=== PATIENT | female | born 1960 | race Caucasian/White ===

== ENCOUNTER 2020-03-09 09:28 | Outpatient (CLI) | payer OTHER, SELFPAY ==
--- NOTE | 2020-03-09 10:42 | ECG_ITS ---
Measurements Intervals [place] Rate: 48 P: 14 ME: 121 QRS: -12 QRSD: 97 T: 0 QT: 411 QTc: 371 Interpretive Statements SINUS BRADYCARDIA DELAYED PRECORDIAL R/S TRANSITION BORDERLINE T WAVE ABNORMALITY- INFERIOR LEADS ABNORMAL ECG Electronically Signed On 03-09-2020 11:00:30 CDT by Gunnar Willis D.O.
[2020-03-09 11:15] LABS: Basophils Percent Auto 0.4 % (0.2-1.2); Eosinophils Absolute Auto 0.1 K/mm3 (0-0.3); Eosinophils Percent Auto 1.8 % (0-4.4); Hematocrit 43.8 % (37.0-47.0); Hemoglobin 14.2 g/dL (12.0-15.0); Immature Granulocyte Absolute 0.01 K/mm3 (0.00-0.031); Immature Granulocyte Percent A 0.2 % (0-0.5); Lymphocytes Absolute Auto 1.58 K/mm3 (0.9-3.2); Lymphocytes Percent Auto 32.4 % (18.3-44.2); Mean Corpuscular HGB Conc 32.4 g/dl (32-36); Mean Corpuscular Volume 86.4 fl (80-100); Mean Platelet Volume 10.9 fl (7.4-10.4); Monocytes Absolute Auto 0.5 K/mm3 (0.1-0.6); Monocytes Percent Auto 9.6 % (2.6-8.5); Neutrophils Absolute Auto 2.7 K/mm3 (1.3-6.7); Neutrophils Percent Auto 55.6 % (45.5-73.1); Platelet Count Result 201 k/mm3 (150-375); Red Blood Count 5.07 M/mm3 (4.2-5.4); White Blood Count 4.9 K/mm3 (4.5-10.0)
[2020-03-09 11:22] LABS: Prothrombin Time 12.5 Seconds (11.1-14.7)
[2020-03-09 11:23] LABS: Partial Thromboplastin Time 27.9 SECONDS (22.3-36.8)
[2020-03-09 11:27] LABS: Alanine Aminotransferase 37 U/L (4-35); Albumin Level 4.5 g/dL (3.5-5.1); Alkaline Phosphatase 90 U/L (38-126); Anion Gap 10.2 mmol/L (7-16); Aspartate Amino Transferase 33 U/L (14-36); Bilirubin,Total 0.5 mg/dL (0.2-1.3); Blood Urea Nitrogen 14 mg/dL (7-17); Calcium 9.4 mg/dL (8.4-10.2); Carbon Dioxide 29 mmol/L (22-30); Chloride 105 mmol/L (98-107); Estimated Glomerular Filt Rate > 60; Glucose 86 mg/dL (65-105); Potassium 4.2 mmol/L (3.4-5.0); Sodium 140 mmol/L (137-145)
== END 2020-03-09 09:29 | disposition home or self-care (01) ==
LOC: ANHSURGERY 09:32
PROVIDERS: PCP Internal Medicine; Visit Provider Urology
DX: N81.9 Female genital prolapse, unspecified (principal); E78.00 Pure hypercholesterolemia, unspecified; R94.31 Abnormal electrocardiogram [ECG] [EKG]
CPT/HCPCS: 36415; 80053; 85025; 85610; 85730; 86850; 86900; 86901; 87086; 87088; 93005

== ENCOUNTER 2020-03-12 00:03 | Outpatient (CLI) | payer OTHER, SELFPAY ==
[2020-03-12 20:43] LABS: SARS-CoV-2 RNA PCR Negative
== END 2020-03-12 00:04 | disposition home or self-care (01) ==
LOC: ANHCOVIDDT 00:03
PROVIDERS: PCP Internal Medicine; Visit Provider Urology
DX: Z01.818 Encounter for other preprocedural examination (principal); Z11.59 Encounter for screening for other viral diseases
CPT/HCPCS: 87635; C9803; U0003

== ENCOUNTER 2020-03-15 01:02 | Day surgery (SDC) | payer OTHER, SELFPAY ==
[2020-03-09 10:02] VITALS: BP 171/83; PULSE 54; RESP 16; TEMP 36.8; O2SAT 99; BMI 32.5
[2020-03-15] VITALS (16 sets, daily range): BP systolic 84–140; BP diastolic 41–96; PULSE 59–94; RESP 13–18; TEMP 36.2–37.4; O2SAT 93–100
[2020-03-15] MEDS: LACTATED RINGERS 1,000 ML 30 ML IV CONT ×2 (06:42→10:07)
--- NOTE | 2020-03-15 06:50 | P.PNAN_ITS ---
Anes - Initial Pre Proc Eval Procedure: Operation Date: 03/15/20 07:30 Proposed Procedures p Robotic Sacrocolpopexy, Possible Urethral Sling - Drew Albarran MD Date/Time: 03/15/20 06:50 Surgeon: Drew Albarran MD Pre Op Diagnosis: vaginal vault prolapse Patient Data Age: 59 Gender: F Height: 5 ft 2 in Weight: 80.7 kg Last Vital Signs Temp 36.8 C 03/09/20 10:02 Pulse 54 L 03/09/20 10:02 Resp 16 03/09/20 10:02 BP 171/83 H 03/09/20 10:02 Pulse Ox 99 03/09/20 10:02 Allergies Allergy/AdvReac Type Severity Reaction Status Date / Time No Known Allergies Allergy Verified 03/15/20 06:27 Home Medications Medication Instructions Recorded Confirmed Type atorvastatin 20 mg PO QAM 03/09/20 03/15/20 History sertraline 25 mg PO QAM 03/09/20 03/15/20 History Patient hx anesthesia problems: none Family hx anesthesia problems: none [facility] Past Medical History Medical History (Updated 03/15/20 @ 06:50 by Sharif Cook MD) Depression Hyperlipidemia Obesity Surgical History Surgical History (Updated 03/15/20 @ 06:50 by Sharif Cook MD) H/O: hysterectomy Social History Social History Smoking status: Former smoker Tobacco type: cigarettes Additional smoking assessment comments: SOCIAL SMOKER QUIT > 40 YEARS AGO Alcohol intake: current Substance use: never Living arrangements: with family Additional living arrangements comments: LIVES WITH Spiritual care concerns: No Anes - Eval Final PreProcedure Day of Procedure 03/15/20 06:50 Patient weight: obese Heart: regular rate and rhythm Lungs: clear to auscultation Airway: Mallampati scale class II Neurological: alert and oriented Last oral intake: >/= 8 hours ASA classification: II Emergent: no Anesthetic plan: proceed Anesthesia type and monitoring: general ETT and standard monitoring Informed Consent: The patient's anesthetic plan and its attendant risks and benefits were discussed with the patient/family/POA. Questions were solicited and answers provided to the satisfaction of the patient/family/POA.
--- NOTE | 2020-03-15 07:29 | WPDHPUPDATE1 ---
History and Physical Update Update Date/Time: 03/15/20 07:29 History and Physical has been reviewed, including an updated exam of the patient. There are NO changes in the patient's condition. Risks, benefits, and alternatives have been discussed and questions answered. Patient agrees to proceed with procedure.
[2020-03-15] MEDS: ceFAZolin 2 GM/D5W 50 ML 2 GM/50 ML BAG IVPB (07:33)
[2020-03-15] MEDS: BUPIVACAINE/EPINEPHRINE 0.25% 50 ML VIAL 10 ML INFILTRATE (08:19)
--- NOTE | 2020-03-15 09:55 | PM.PROC ---
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 She agrees to proceed. She was correctly identified and informed consent was obtained. She is brought to the operating room. She was given general anesthesia. She was placed in the low lithotomy position. She was prepped and draped in a sterile fashion. She was given appropriate perioperative antibiotics. A time-out was performed. I anesthetized the skin 3 fingerbreadths above the umbilicus. I incised the skin. I grasped the fascia with Jose Alejandro clamps. I entered the fascia sharply. I placed sutures for later fascial closure. I placed a midline trocar. Under direct vision I placed 2 additional trocars in the right and left upper quadrant. She was placed in steep Trendelenburg and the robot was docked. I sat at the console. Adhesions if present were taken down with a combination of blunt and sharp dissection with minimal pinpoint cautery taking great care not to injure surrounding organs. With the Sizer in the vagina and created a plane on the anterior and posterior vaginal wall for several cm using great care not to injure the vagina bladder or rectum. I introduced the mesh into the abdomen. I sewed the anterior leaflet of mesh on the anterior vaginal wall and posterior leaflet of mesh on the posterior vaginal wall with several sutures of 2 0 [place]-Reese taking great care not to go through and through. I reflected the colon laterally. I opened up the peritoneum over the sacral promontory. I carried this into the cul-de-sac freeing up the edges. I located the ureter and kept lateral. I dissected down to the fatty tissues to locate the anterior longitudinal ligament of the sacrum. Any vessels were controlled with bipolar cautery. I tensioned my mesh appropriately. I did a vaginal exam to assure prolapse reduction without undue tension. There is no sign of any mesh exposure in the vagina. I then sewed the proximal leaflet of mesh onto the ligament with 3 sutures of 2 2 0 [place]-Reese. I then used a 2 0 Monocryl to completely and meticulously retroperitonealized all mesh. I allowed the colon to go back into its normal anatomic location. There is no sign of any impingement. The abdomen was exited. Fascial sutures were closed. Skin was closed with 4 0 Monocryl and glue was applied. she was then repositioned and prepped. She had some perineal laxity. I anesthetized the perineum. I removed a cecille-shaped area of skin. I performed a perineal repair with 0 Vicryl suture. I used a 2 Vicryl closing mucosa. There was excellent perineal support without undue narrowing of the vagina. On cystoscopy there is no sign of any violation of the bladder or urethra and no foreign bodies. Ureteral orifices were seen to excrete clear yellow urine. She was then awakened and transferred to the PACU in stable condition. Anesthesia: GETIsela Surgeon: Drew Albarran MD Drains: No (Segovia catheter) Packing: No Pathology: none sent Complications: No immediate complications Condition: stable Disposition: PACU
[2020-03-15] MEDS: KCL 20 MEQ/D5/0.45% SOD CHL 1,000 ML 100 ML IV CONT (11:37)
--- NOTE | 2020-03-15 12:20 | OBPPTRN ---
Patient transferred to room #289 via bed. Oriented to unit, room, information board, admission packet and security measures. Patient verbalizes understanding.
[2020-03-15] MEDS: KETOROLAC 15 MG/ML VIAL (*BKC) IV PUSH (16:31)
[2020-03-16 00:10] VITALS: BP 126/64; PULSE 76; RESP 18; TEMP 37.1; O2SAT 95
[2020-03-16] MEDS: ZOLPIDEM TARTRATE 5 MG TABLET PO (00:18)
[2020-03-16 04:20] VITALS: BP 121/60; PULSE 65; RESP 18; TEMP 36.8; O2SAT 94
--- NOTE | 2020-03-16 07:44 | WPDANESPN ---
Anes - Prog Note Post-Op Date/Time: 03/16/20 07:44 Cardiovascular status: normal Respiratory status: normal Airway patency: baseline Mental status: baseline Post-Op hydration status: normal Vital Signs: Last Vital Signs Temp 36.8 C 03/16/20 04:20 Pulse 65 03/16/20 04:20 Resp 18 03/16/20 04:20 BP 121/60 03/16/20 04:20 Pulse Ox 94 03/16/20 04:20 I/O: Intake & Output 03/15/20 03/15/20 03/16/20 15:59 23:59 07:59 Intake Total 800 800 Output Total 975 Balance 800 -175 Post-procedural complaints: none Patient Feedback: Patient satisfied with anesthetic care.
--- NOTE | 2020-03-16 08:30 | WPDUROPN2 ---
Progress Note: A&P Assessment and Plan (1) Vaginal vault prolapse: Code(s): N81.9 - Female genital prolapse, unspecified Status: Acute Assessment and Plan: Ok to discharge home after her next dose of antibioitcs. Subjective Subjective Date/Time Seen: 03/16/20 08:30 POD #1 Robotic Assisted Laparoscopic Sacral Colpopexy Review of Systems Cardiovascular: Cardiovascular: Denies chest pain Respiratory: Respiratory: Reports no additional respiratory complaints Gastrointestinal: Gastrointestinal: Denies abdominal pain, Denies nausea and Denies vomiting Exam Resp: Effort & Inspection: normal respiratory effort Cardio: Rate: regular rate GI: GI Palp: Yes Soft to palpation and Yes Tenderness to palpation present (GI) (at incision sites only, all are well approximated, no drainage or edema) Extrem: General: no edema Objective Data Vital Signs Vital Signs: Vital Signs - 24 hr 03/15/20 10:07 03/15/20 10:15 03/15/20 10:30 Temperature 97.2 F L Pulse Rate 78 63 61 Respiratory Rate 13 16 18 Blood Pressure 93/47 L 100/49 L 84/41 L Pulse Oximetry 100 100 100 03/15/20 10:45 03/15/20 11:00 03/15/20 11:15 Temperature Pulse Rate 72 68 69 Respiratory Rate 18 16 16 Blood Pressure 94/82 L 121/75 96/53 L Pulse Oximetry 100 98 97 03/15/20 11:37 03/15/20 11:45 03/15/20 12:00 Temperature 97.6 F Pulse Rate 75 87 76 Respiratory Rate 16 16 16 Blood Pressure 140/96 H 127/82 125/70 Pulse Oximetry 98 97 94 03/15/20 12:30 03/15/20 13:00 03/15/20 14:00 Temperature Pulse Rate 82 91 94 Respiratory Rate 16 16 16 Blood Pressure 131/75 138/80 138/80 Pulse Oximetry 97 98 98 03/15/20 15:00 03/15/20 15:35 03/15/20 19:50 Temperature 99 F 98.6 F 99.4 F Pulse Rate 77 89 78 Respiratory Rate 16 16 18 Blood Pressure 135/68 128/71 124/66 Pulse Oximetry 96 93 95 03/16/20 00:10 03/16/20 04:20 Temperature 98.8 F 98.2 F Pulse Rate 76 65 Respiratory Rate 18 18 Blood Pressure 126/64 121/60 Pulse Oximetry 95 94 Intake/Output Intake/Output: Intake & Output 03/13/20 03/14/20 03/15/20 03/16/20 23:59 23:59 23:59 23:59 Intake Total 1600 Output Total 975 Balance 625 Meds/Results Medications: Active Medications Generic Name Dose Route Start Last Admin Trade Name Freq PRN Reason Stop Dose Admin Acetaminophen 650 mg 03/15/20 07:40 Tylenol Tablet PO Q4H PRN Mild Pain (1-3) or Fever Hydrocodone Bitart/Acetaminophen 1 tab 03/15/20 07:40 03/16/20 07:13 [place] 5-325 Mg PO 1 tab Q4H PRN Administration Pain Rated 4-5 Atorvastatin Calcium 20 mg 03/15/20 09:00 03/15/20 16:18 Lipitor PO Not Given QAM RODRIGUEZ Cephalexin HCl 500 mg 03/16/20 13:00 Keflex Capsule PO QID RODRIGUEZ Diphenhydramine HCl 25 mg 03/15/20 07:40 Benadryl Inj IV PUSH Q6H PRN Itching Docusate Sodium 100 mg 03/15/20 09:00 03/15/20 16:18 Colace Capsule PO Not Given DAILY [facility] Enoxaparin Sodium 30 mg 03/15/20 09:00 03/15/20 16:20 Lovenox SUB-Q Not Given DAILY [facility] Fentanyl Citrate 25 mcg 03/15/20 06:51 Sublimaze IV PUSH Q2M PRN Pain Lactated Ringer's 1,000 mls @ 30 mls/hr 03/15/20 04:25 03/15/20 10:07 Lr - Lactated Ringers Iv IV CONT Infused .Q24H RODRIGUEZ Infusion Lactated Ringer's 1,000 mls @ 30 mls/hr 03/15/20 06:55 03/15/20 11:13 Lr - Lactated Ringers Iv IV CONT Infused .Q24H RODRIGUEZ Infusion Potassium Chloride/Dextrose/Sod Cl 1,000 mls @ 100 mls/hr 03/15/20 07:40 03/15/20 11:37 Kcl 20 Meq/D5/0.45% Sod Chl IV CONT 100 mls/hr .Q10H RODRIGUEZ Administration Morphine Sulfate 2 mg 03/15/20 07:40 Morphine Sulfate Inj IV PUSH Q2H PRN Pain Rated 6 or Greater Ondansetron HCl 4 mg 03/15/20 06:51 Zofran Inj IV PUSH ONCE PRN Nausea Ondansetron HCl 4 mg 03/15/20 07:40 Zofran Inj IV PUSH Q6H PRN Nausea And Vomiting Sertraline HCl 25 mg 03/15/20
[2020-03-16 08:35] VITALS: BP 138/68; PULSE 68; RESP 18; TEMP 36.3; O2SAT 97
[2020-03-16] MEDS: DOCUSATE SODIUM 100 MG CAPSULE PO (09:00)
[2020-03-16] MEDS: ENOXAPARIN 30 MG/0.3 ML SYRINGE SUB-Q (09:01)
[2020-03-16] MEDS: ATORVASTATIN 20 MG TABLET PO (09:01)
[2020-03-16] MEDS: SERTRALINE HCL 25 MG TABLET PO (09:02)
[2020-03-16] MEDS: CEPHALEXIN 500 MG CAPSULE PO (09:18)
== END 2020-03-16 11:07 | disposition home or self-care (01) ==
LOC: ANHSURGERY 09:57 → ANHOB2 11:21
PROVIDERS: PCP Internal Medicine; Visit Provider Urology
PROC: (CPT 57425; principal; 2020-03-15 07:30)
DX: N81.4 Uterovaginal prolapse, unspecified (principal); E78.5 Hyperlipidemia, unspecified; F32.9 Major depressive disorder, single episode, unspecified; E66.9 Obesity, unspecified; Z68.32 Body mass index [BMI] 32.0-32.9, adult; Z87.891 Personal history of nicotine dependence
CPT/HCPCS: 57425; 99199; A9270; C1781; J0330; J0690; J1100; J1650; J1885; J2250; J2405; J2704; J2710; J3010; J3480; J7030; J7120

== ENCOUNTER 2023-05-02 15:59 | Emergency (ER) | payer OTHER, SELFPAY ==
--- NOTE | 2023-05-02 16:08 | ED.URI ---
HPI - URI/Sore Throat General Chief Complaint: Upper Respiratory Infection Stated Complaint: Sore Throat, Congestion, Earache Source: patient and RN notes reviewed Mode of arrival: ambulatory Limitations: no limitations History of Present Illness HPI Narrative: Patient is a 62-year-old female who presents to the [facility] with complaints of left ear pain, sore throat, and congestion started this morning. Patient states that she felt a significant amount pressure in her left ear. She reports a scratchy throat, headache, and congestion. She denies cough, shortness chest pain, shortness of breath. Denies known fevers or chills. Denies abdominal pain, nausea, vomiting. States that she has been experiencing diarrhea for the past 2 days. She reports increased fatigue. Related Data Home Medications Medication Instructions Recorded Confirmed atorvastatin 20 mg tablet 20 mg PO QAM 03/09/20 03/15/20 sertraline 25 mg tablet 25 mg PO QAM 03/09/20 03/15/20 Allergies Allergy/AdvReac Type Severity Reaction Status Date / Time No Known Allergies Allergy Verified 03/15/20 06:27 Review of Systems Review of Systems: CONSTITUTIONAL: Denies fever, chills, or sweats. EYES: Denies visual changes, redness, or discharge. ENT: Reports otalgia and sore throat. Reports nasal congestion. CARDIOVASCULAR: Denies chest pain, palpitations, or edema. RESPIRATORY: Denies cough or dyspnea. GASTROINTESTINAL: Denies abdominal pain, nausea, vomiting, or diarrhea. GENITOURINARY: Denies dysuria or hematuria. SKIN: Denies rash or itching. MUSCULOSKELETAL: Denies back pain, joint pain, or myalgia. NEUROLOGIC: Reports headache but denies numbness or weakness. Pertinent positives per HPI. [facility] Past Medical History Medical History Depression Hyperlipidemia Obesity Surgical History Surgical History H/O: hysterectomy Social History Social History Smoking status: Former smoker Tobacco type: cigarettes Additional smoking assessment comments: SOCIAL SMOKER QUIT > 40 YEARS AGO Alcohol intake: current Substance use: never Living arrangements: with family Additional living arrangements comments: LIVES WITH Spiritual care concerns: No Comments At the time of my signature, I reviewed and agree with the nursing past medical, surgical, social, and family history. There is no relevant family history pertinent to the patient complaint. Exam Narrative: GENERAL: This is a well-nourished, well-developed patient, in no apparent distress. HEAD: normocephalic, atraumatic. EYES: Sclera clear/white. Vision is grossly intact. EARS: External ears normal, auditory canals clear and without drainage, TMs normal without perforation on right. TM erythematous and bulging on left. Hearing grossly intact. NOSE: External nose normal. Moderate congestion. THROAT: Mucous membranes moist, Oropharyngeal erythema without exudate or ulceration. NECK: Neck supple, non-tender without lymphadenopathy, masses or thyromegaly. CARDIOVASCULAR: Regular rate and rhythm without murmurs, gallops, or rubs. RESPIRATORY: Clear to auscultation. Breath sounds equal bilaterally. No wheezes, rales, or rhonchi. GASTROINTESTINAL: Abdomen soft, non-tender, nondistended. Bowel sounds are active. No hepato-splenomegaly, or palpable masses. No guarding. SKIN: warm, intact with no suspicious lesions or rash, good texture and turgor. NEURO: awake, alert, and oriented to person, place and time. There were no obvious focal neurologic abnormalities.. Course Course Level of Care: Express Care Visit Vital Signs Vital signs: Vital Signs Temperature 97.5 F L 05/02/23 16:15 Pulse Rate 71 05/02/23 16:15 Respiratory Rate 16 05/02/23 16:15 Blood Pressure 127/75 05/02/23 16:15 Pulse Oximetry
[2023-05-02 16:15] VITALS: BP 127/75; PULSE 71; RESP 16; TEMP 36.4; O2SAT 98
== END 2023-05-02 16:30 | disposition home or self-care (01) ==
PROVIDERS: Emergency Provider Nurse Practitioner; PCP Internal Medicine
DX: H66.002 Acute suppurative otitis media without spontaneous rupture of ear drum, left ear (principal); F32.A Depression, unspecified; E78.5 Hyperlipidemia, unspecified; E66.9 Obesity, unspecified; Z68.31 Body mass index [BMI] 31.0-31.9, adult; Z87.891 Personal history of nicotine dependence
CPT/HCPCS: 87081; 87880; 99213; G0463

== ENCOUNTER 2024-02-27 12:51 | Emergency (ER) | payer BC, SELFPAY ==
[2024-02-27 13:08] VITALS: BP 123/92; PULSE 65; RESP 16; TEMP 36.6; O2SAT 99
--- NOTE | 2024-02-27 13:20 | ED.SKABFB ---
HPI - Skin/Abscess/Foreign Bdy General Chief complaint: Skin/Abscess/Foreign Body Stated complaint: TINGLING/BURNING PAINFUL BUMPS Source: patient Mode of arrival: ambulatory Limitations: no limitations History of Present Illness HPI narrative: 63-year-old female presented complaint pain to the left leg for 2 days. Pain is described discharge, tingling. Rates pain 7/10 Endorses small area of red bumps noted to the back of the left knee. She states pain extends down to the toe and the abdomen back. Endorses flu-like symptoms last week. She has taken Tylenol without relief. Denies lip, tongue, or throat swelling, shortness of breath or wheezing. Denies changes to soap, detergent, lotion, or any other exposures. No one else in the house or any contacts with similar symptoms. Related Data Home Medications Medication Instructions Recorded Confirmed atorvastatin 20 mg tablet 20 mg PO QAM 03/09/20 05/02/23 sertraline 25 mg tablet 25 mg PO QAM 03/09/20 05/02/23 Allergies Allergy/AdvReac Type Severity Reaction Status Date / Time No Known Allergies Allergy Verified 02/27/24 13:16 Review of Systems Review of Systems: CONSTITUTIONAL: Denies body aches, fever, chills, or sweats. EYES: Denies visual changes, redness, or discharge. ENT: Denies rhinorrhea, congestion CARDIOVASCULAR: Denies chest pain, palpitations, or edema. RESPIRATORY: Denies cough or dyspnea. GASTROINTESTINAL: Denies abdominal pain, nausea, vomiting, or diarrhea. SKIN: Denies rash or wounds MUSCULOSKELETAL: Denies back pain, joint pain, or myalgia. NEUROLOGIC: Reports tingling to left leg Denies headache, numbness, or weakness. [facility] Past Medical History Medical History Depression Hyperlipidemia Obesity Surgical History Surgical History H/O: hysterectomy Social History Social History Smoking status: Former smoker Tobacco type: cigarettes Additional smoking assessment comments: SOCIAL SMOKER QUIT > 40 YEARS AGO Alcohol intake: current Substance use: never Living arrangements: with family Additional living arrangements comments: LIVES WITH Spiritual care concerns: No Comments At time of signature, I have reviewed and agree with nursing past medical, surgical, social and family history unless otherwise noted. Please see nursing chart for further information. There is no relevant family history pertinent to the presenting complaint Exam Narrative: GENERAL: Well-appearing EYES: PERRLA, conjunctivae clear, and EOMI. ENT: Mucous membranes moist. Oropharynx without edema, erythema or lesions. NECK: Supple. No lymphadenopathy CHEST: Clear to auscultation. No respiratory distress. HEART: Regular rate and rhythm. SKIN: Warm, dry. Scattered vesicles on erytematous base c/w zoster noted to posterior left knee, tender with palpation no active drainage, no fluctuance or induration noted. NEURO: Alert and oriented x3. PSYCH: Normal mood and affect Course Course Emergency Course: Patient is aware of diagnosis, understands and agrees to treatment plan. Anticipatory guidance given. Patient agrees to follow-up as directed and is aware of reasons to seek care at the emergency department. Portions of this record may have been created with voice recognition software Level of Care: Express Care Visit Vital Signs Vital signs: Vital Signs Temperature 97.9 F 02/27/24 13:08 Pulse Rate 65 02/27/24 13:08 Respiratory Rate 16 02/27/24 13:08 Blood Pressure 123/92 H 02/27/24 13:08 Pulse Oximetry 99 02/27/24 13:08 Temperature 97.9 F 02/27/24 13:08 Pulse Rate 65 02/27/24 13:08 Respiratory Rate 16 02/27/24 13:08 Blood Pressure 123/92 H 02/27/24 13:08 Pulse Oximetry 99 02/27/24 13:08 Reviewed MDM - Skin/Abscess/Forei
== END 2024-02-27 13:32 | disposition home or self-care (01) ==
PROVIDERS: Emergency Provider Nurse Practitioner Family; PCP Internal Medicine
DX: B02.9 Zoster without complications (principal); Z87.891 Personal history of nicotine dependence; E78.5 Hyperlipidemia, unspecified; E66.9 Obesity, unspecified; Z68.27 Body mass index [BMI] 27.0-27.9, adult; F32.A Depression, unspecified
CPT/HCPCS: 99213; G0463